=== PATIENT | male | born 1990 | race Caucasian/White ===

== ENCOUNTER 2018-12-14 06:17 | Emergency (ER) | payer MEDICAID, SELFPAY ==
[2018-12-14 06:19] VITALS: BP 177/97; PULSE 94; RESP 16; TEMP 36.7; O2SAT 100; BMI 21.4
--- NOTE | 2018-12-14 06:33 | EKG12_ITS ---
Test Reason : SOB Blood Pressure : / mmHG Vent. Rate : 090 BPM Atrial Rate : 090 BPM P-R Int : 130 ms QRS Dur : 074 ms QT Int : 364 ms P-R-T Axes : 068 061 056 degrees QTc Int : 445 ms Normal sinus rhythm with sinus arrhythmia Minimal voltage criteria for LVH, may be normal variant Borderline ECG Confirmed by ANTHONY DUKES ([id number]), newspaper editor CAROLYNE PEDERSON ([id number]) on 12/23/2018 3:47:04 PM Referred By: STANISLAW Confirmed By:ANTHONY DUKSE
--- NOTE | 2018-12-14 06:34 | ED.DCSUM_ITS ---
History of Present Illness Chief Complaint: Shortness of Breath Informant: Patient Onset: Today Narrative: Presents by EMS for chest tightness and dyspnea this evening. Patient has been walking around all night. Denies any cough. Social tobacco. Occasional alcohol states had a couple drinks earlier in the day. History of anxiety however no history of panic attacks. No recent travel, surgeries, or immobilizations. No history of PE or DVT. However reports family history of blood clots and is concerned of it. Denies leg swelling or cramping. Smokes marijuana occasionally last use was a week ago. Denies fever, chills, sweats. Prior similar symptoms: No Past Medical History - Allergies and Home Meds Allergies/Adverse Reactions: Allergies No Known Allergies Allergy (Verified 12/14/18 06:21) Primary Care Physician: NOT,DEFINED [NON-STAFF] - Smoking Status: Current some day smoker Review of Systems General: Denies: Chills, Fever, Sweats Eyes: Denies: Visual changes - bilaterally, Diplopia ENT: Denies: Rhinorrhea, Sore throat Cardiovascular: Reports: Chest pain, Palpitations Respiratory: Reports: Dyspnea. Denies: Cough, Dyspnea on exertion Gastrointestinal: Denies: Abdominal pain, Nausea, Vomiting, Diarrhea, Melena, Hematochezia Genitourinary: Denies: Dysuria, Hematuria, Frequency Musculoskeletal: Denies: Back pain, Extremity Pain Skin: Denies: Rash, Wounds Neurological: Denies: Headache, Weakness, Numbness Physical Exam Vital Signs/Narrative: Vital Signs Temp Pulse Resp BP Pulse Ox 12/14/18 06:19 98.1 F 94 16 177/97 H 100 Inital Vital Signs reviewed: Yes General: Well nourished, Well developed, No Acute Distress Head: Normocephalic, Atraumatic Eyes: Perrl, EOMI ENT: Moist mucous membranes, No rhinorrhea Neck: Supple, Nontender Cardiovascular: Regular rate, Regular rhythm, No murmurs Respiratory: No distress, CTA bilaterally, Chest tenderness, - - Reproducible sternal tenderness and left-sided chest tenderness without rash. Symmetric breath sounds. Abdomen: Soft, Nontender, Nondistended, Normal bowel sounds Back: Nontender, Normal Inspection Extremities: Nontender, No edema Skin: Normal color, No rash Neurological: Alert, Oriented x3, Cranial nerves II-XII grossly intact, Normal Strength, Normal Sensation Psychological: - - Mildly anxious Diagnostic/Tx/Re-eval Chest X-Ray - ED: 2 View, Read by ED Physician, Normal, Heart, Lungs, No Acute Disease - EKG Initial EKG Interpretation: Sinus Rhythm - Sinus rate of 98, no ST or T wave changes. - Medical Decision Making Patient vital signs stable oxygen 100%. He had reproducible chest wall tenderness with no rash. Complaining of dyspnea. Patient's PERC negative, however he reports concern for blood clots with family history. I did check labs with d-dimer which was negative. Chest x-ray reviewed by myself shows no acute process. He is given aerosol treatment states dyspnea was improved however still has some chest wall tenderness. Reports some cramping in his digits, his potassium was 3.1. He was orally replaced. He was given prescription for 1 week supply along with inhaler prescription. He will be [facility] follow-up as an outpatient. Discussed tobacco and marijuana cessation with the patient. He was reassured. Patient reports prior to discharge cannot afford medications. Pro-air inhaler discharged with patient. All questions were answered. ED Disposition - Plan for ED Patient: Disposition: Home or Assisted Living Diagnosis: Atypical chest pain, Dyspnea, Hypokalemia Instructions: CHEST PAIN, NonCardiac, Hypokalemia, ED Dyspnea Prescriptions: Potassium Chloride [K-Dur] 20 meq PO DAILY #7 tablet Referrals: NOT,[facility] [NON-STAFF] - Yaz Elaine [NON-STAFF] - 3-5 Days Additional Instructions: If you are concerned of your health, you need to stop smoking and stop using marijuana. Take medication as prescribed.
[2018-12-14 06:44] VITALS: PULSE 85; RESP 12
--- NOTE | 2018-12-14 06:44 | NURSING ---
NO OLD EKGS
[2018-12-14] MEDS: Ipratropium/Albuterol Sulfate 3 ML AMPUL.NEB INHALATION (06:58)
[2018-12-14 07:04] LABS: D-Dimer Quantitative (DVT/PE) < 0.27 FEU/ug/m (0.27-0.49)
--- NOTE | 2018-12-14 07:06 | RAD_ITS ---
STUDY: X-RAY CHEST REASON FOR EXAM: Male, 28 years old. OBSShort of Breath/DyspneaSRAD - Chest TECHNIQUE: Frontal and lateral views of the chest. COMPARISON: None. FINDINGS: The lungs are clear and expanded. There is no demonstrated pleural abnormality. Normal size heart. Normal mediastinum and derrick. Normal visualized pulmonary arteries. Normal visualized aortic arch and descending thoracic aorta. Normal visualized thoracic spine. Normal visualized ribs, clavicles, and shoulders. There is no demonstrated abnormality of the visualized soft tissue structures of the upper abdomen. RAD/Chest PA and Lateral IMPRESSION: Normal x-ray examination of the chest. Electronically Signed: Moni Breen, at 8:10 EDT Tel , Service support ,
[2018-12-14 07:07] LABS: Anion Gap 8 (5-15); BUN 10 mg/dL (7-18); BUN/Creat Ratio 12.3 RATIO (10-20); Calcium,Total 9.4 mg/dL (8.5-10.1); Chloride 105 mmol/L (98-107); Creatinine, Serum 0.81 mg/dL (0.70-1.30); EST Glomerular Filtration Rate 122 mL/min (>60); Est Glom Filt Rate - Afr Amer 147 mL/min (>60); Estimated Creatinine Clearance 128.56 ml/min; Glucose 83 mg/dL (74-106); Potassium 3.1 mmol/L (3.5-5.1); Sodium Level 140 mmol/L (136-145)
[2018-12-14] MEDS: Ketorolac 30 MG/ML Syringe IV (07:40)
[2018-12-14 08:02] VITALS: BP 136/87; PULSE 88; RESP 15; O2SAT 97
== END 2018-12-14 08:18 | disposition home or self-care (01) ==
PROVIDERS: Emergency Provider Emergency Medicine
DX: R06.02 Shortness of breath (principal); R07.89 Other chest pain; E87.6 Hypokalemia; F17.200 Nicotine dependence, unspecified, uncomplicated; F12.90 Cannabis use, unspecified, uncomplicated
CPT/HCPCS: 71046; 80048; 85379; 93005; 94640; 96374; 99285; A4216